=== PATIENT | male | born 1945 | race Caucasian/White ===

== ENCOUNTER 2017-01-14 19:13 | Inpatient (IN) | payer MEDICARE, BC ==
[2017-01-14 19:00] VITALS: BP 155/95
[2017-01-14 20:06] LABS: BASOPHILS 0.1 % (0.0-2.0); EOSINOPHILS 0.7 % (0-7); HEMATOCRIT 42.1 % (42.0-54.0); HEMOGLOBIN 13.7 g/dL (13.5-17.5); IMMATURE GRANULOCYTES 0.3 % (0-5); MCH 32.2 pg (26.0-34.0); MCHC 32.5 g/dL (31.0-37.0); MCV 98.8 fL (80.0-100.0); MEAN PLATELET VOLUME 9.9 fL (7.4-10.4); MONOCYTES 8.5 % (2-11); NEUTROPHILS 79.4 % (40-80); PLATELET COUNT 232 10x3/uL (130-400); RBC 4.26 10x6/uL (4.20-6.10); RDW 14.1 % (11.5-14.5); WBC 9.2 10x3/uL (4.8-10.8)
[2017-01-14 20:46] LABS: ALBUMIN 3.9 g/dL (3.4-5.0); ALKALINE PHOSPHATASE 120 U/L (46-116); ALT (SGPT) 29 U/L (10-68); CALC OSMOLALITY 283 mosm/kg (275-300); CALCIUM 8.9 mg/dL (8.5-10.1); CARBON DIOXIDE 28.5 mmol/L (21.0-32.0); CHLORIDE - SERUM 103 mmol/L (98-107); CREATININE - SERUM 1.1 mg/dL (0.6-1.3); GLUCOSE 125 mg/dL (74-106); POTASSIUM - SERUM 3.5 mmol/L (3.5-5.1); PROTEIN - SERUM 7.2 g/dL (6.4-8.2); SODIUM 141 mmol/L (136-145); UREA NITROGEN 17 mg/dL (7-18); eGFR NON AFRICAN AMERICAN 70 mL/min (90-120)
[2017-01-14 21:05] LABS: AMYLASE - SERUM 82 U/L (25-115); CREATINE KINASE 268 UL (21-232); LIPASE 186 U/L (73-393); PRO BNP 45 pg/mL (0-125)
[2017-01-14 21:06] LABS: CKMB 1.9 U/L (0.0-3.6); TROPONIN-I < 0.017 ng/mL (0.000-0.060)
[2017-01-15] MEDS ORDERED: AVAPRO300 MG PO ×2 (06:14→09:16)
[2017-01-15] MEDS ORDERED: LOZOL1.25 MG PO (06:15)
--- NOTE | 2017-01-15 06:51 | NUR ---
MEDITECH DOWN THROUGHOUT THE SHIFT, SEE NARRATIVE PAPER CHARTING.
[2017-01-15 08:50] VITALS: BP 119/71
[2017-01-15] MEDS ORDERED: ZYLOPRIM300 MG PO (09:14)
[2017-01-15] MEDS ORDERED: HYTRIN10 MG PO (09:14)
--- NOTE | 2017-01-15 09:35 | NUR ---
TELEMETRY SR. IV PATENT. CALL LIGHT IN REACH. WILL CONT. PLAN OF CARE.
[2017-01-15 11:03] VITALS: Wt 117.9 kg
[2017-01-15 11:54] VITALS: BP 109/70
[2017-01-15 16:09] VITALS: BP 172/76
[2017-01-15 19:00] VITALS: BP 169/87
[2017-01-16] VITALS: BP 134/81
--- NOTE | 2017-01-16 03:52 | NUR ---
PT RESTING IN BED WITH NO DISTRESS. SR PER TELEMETRY. SALINE LOCK TO LEFT A/C. CALL LIGHT IN REACH.
[2017-01-16 04:00] VITALS: BP 151/79
[2017-01-16 07:44] VITALS: BP 154/80
--- NOTE | 2017-01-16 08:23 | EC ---
PATIENT:MINDY LARKIN DATE OF SERVICE: 01/14/17 SEX: M MEDICAL RECORD: [id number] DATE OF : [birth year] LOCATION:D.M2 D.211 AGE OF PATIENT: 71 ADMISSION DATE: 01/14/17 REFERRING PHYSICIAN: INTERPRETING PHYSICIAN: LITA PADRON MD ECHOCARDIOGRAM REPORT ECHO CHARGES 4 ECHO COMPLETE CLINICAL DIAGNOSIS: A-FIB ECHOCARDIOGRAPHIC MEASUREMENTS (adult normal given) AC root (d.<3.7cm) 3.6 LV Septum d (<1.2 cm> 1.8 Valve Excursion 2.4 LV Septum (systole) 2.9 Left Atria (s.<4.0cm> 4.6 LVPW d(<1.2cm) 1.5 RV (d.<2.3cm) 3.0 LVPW (sytole) 2.3 LV diastole(<5.6CM) 6.7 MV E-F(>70mm/sec) LV systole 4.2 LVOT Diameter 2.5 MV exc.(>10mm) Est.ejection fraction (50-75%) Pericardial Effusion N DOPPLER: LVIT A 73.0 E 103 LA RVSP 33.0 LVOT 139 AOP1/2T Asc. Ao 196 RVOT 71.0 RA PA 113 AV Gradient Peak 15.4 AV Mean 8.2 AV Area 3.3 MV Gradient Peak 4.3 MV Mean 1.9 MV Area COMMENTS: Cleaner Greaser: Lyn ALONZOOE Machinist Wood:Jace Stanley TAPE# PACS DATE OF SERVICE: 01/15/2017 Adequate 2D echo, color flow and spectral Doppler, and M-mode. LVH is present. LV internal dimension is normal. Wall motion is normal. EF is greater than 55%. Aortic valve is tricuspid. No stenosis by Doppler interrogation. The left atrium is on dilated at 4.6 cm. Mitral valve shows no prolapse. Mild MR. Right-sided chamber is grossly normal. Trace TR. TRANSINT:[id number] Voice Confirmation ID: [id number] DOCUMENT ID: [id number] ECHOCARDIOGRAM REPORT [id number] MINDY LARKIN LITA PADRON MD at 0823 CC: [id number] DICTATION DATE: 01/15/17 1327 ANALYTICS CONSULTANT: 01/15/17 1646 ADM IN [facility] [address] [id number]
[2017-01-16] MEDS ORDERED: AVAPRO150 MG PO (10:42)
[2017-01-16] MEDS ORDERED: TOPROL XL50 MG PO (10:42)
[2017-01-16] MEDS ORDERED: FLUTICASONE PRO16 GM NASAL (10:45)
[2017-01-16 11:25] VITALS: BP 144/75
--- NOTE | 2017-01-16 11:51 | NUR ---
Patient Name: MINDY LARKIN Admission Status: ER Accout number: [id number] Admission Date: 01-14-2017 : 1945 Admission Diagnosis: Attending: FAYE Current LOS: 2 Anticipated DC Date: 01-16-2017 Planned Disposition: Home Primary Insurance: MEDICARE A & B Discharge Planning Comments: * Is the patient Alert and Oriented? Yes 0 * How many steps to enter\exit or inside your home? 1-O / 17-I 0 * PCP DR. AGUILAR 0 * Pharmacy [facility] IN [place] 0 * Preadmission Environment Home with Family 0 * ADLs Independent 0 * Equipment Other 0 * Other Equipment BLOOD PRESSURE MONITOR NO MEDICAL EQUIPMENT PROVIDER PREFERENCE 0 * List name and contact numbers for known caregivers / representatives who currently or will assist patient after discharge: BECK LARKIN, SPOUSE, 0 * Community resources currently utilized None 0 * Please name any agencies selected above. NONE 0 * Additional services required to return to the preadmission environment? No 0 * Can the patient safely return to the preadmission environment? Yes 0 * Has this patient been hospitalized within the prior 30 days at any hospital? No 0 CM MET WITH PT IN ROOM TO DISCUSS DISCHARGE PLANNING AND NEEDS. PT REPORTS LIVING AT HOME INDEPENDENTLY WITH SPOUSE. PT HAS BLOOD PRESSURE MONITOR WITH NO MEDICAL EQUIPMENT PROVIDER PREFERENCE. PT HAS NO OUTSIDE SERVICES ASSISTING IN THE HOME. CM DISCUSSED AVAILABILITY OF HOME HEALTH, REHAB SERVICES AND MEDICAL EQUIPMENT. PT DENIES DISCHARGE NEEDS, REPORTS HIS SPOUSE IS HERE TO PICK HIM UP FOR DISCHARGE HOME. IMPORTANT MESSAGE FROM MEDICARE PROVIDED AND EXPLAINED. 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 Wireless Sales Associate: Malik Burdick
--- NOTE | 2017-01-16 12:30 | NUR ---
REVIEWED DISCHARGE INSTRUCTIONS WITH PT AND BOTH STATE UNDERSTANDING COPY GIVEN. DCD SALINE LOCK WITH CATHETER TIP INTACT SITE FREE OF REDNESS OR EDEMA PT DISCHARGED HOME LEFT UNIT IN STABLE CONDITION WITH ALL PERSONAL BELONGINGS
== END 2017-01-16 12:30 | disposition home or self-care (01) | DRG 310 ==
LOC: D.ER 19:13 → D.M2 20:57
PROVIDERS: Family Medicine; ADMIT Family Medicine
DX: I48.91 Unspecified atrial fibrillation (principal); M10.9 Gout, unspecified; I10 Essential (primary) hypertension; N40.0 Benign prostatic hyperplasia without lower urinary tract symptoms; E55.9 Vitamin D deficiency, unspecified; N52.9 Male erectile dysfunction, unspecified; L20.9 Atopic dermatitis, unspecified; M19.90 Unspecified osteoarthritis, unspecified site; E66.9 Obesity, unspecified; J45.909 Unspecified asthma, uncomplicated

== ENCOUNTER → 2017-01-23 08:11 | Outpatient (CLI) | payer MEDICARE, BC ==
[~2017-01-23 08:11] MED LIST: AVAPRO150 MG PO; AVAPRO300 MG PO; FLUTICASONE PRO16 GM NASAL; HYTRIN10 MG PO; LOZOL1.25 MG PO; TOPROL XL50 MG PO; ZYLOPRIM300 MG PO
[2017-01-23 08:32] LABS: BASOPHILS 0.1 % (0.0-2.0); HEMATOCRIT 43.5 % (42.0-54.0); IMMATURE GRANULOCYTES 0.3 % (0-5); LYMPHOCYTES 17.8 % (15-50); MCHC 32.2 g/dL (31.0-37.0); MCV 99.5 fL (80.0-100.0); MEAN PLATELET VOLUME 9.8 fL (7.4-10.4); MONOCYTES 10.8 % (2-11); PLATELET COUNT 222 10x3/uL (130-400); RBC 4.37 10x6/uL (4.20-6.10)
[2017-01-23 09:05] LABS: ALBUMIN 3.4 g/dL (3.4-5.0); ALKALINE PHOSPHATASE 106 U/L (46-116); ALT (SGPT) 31 U/L (10-68); BILIRUBIN - TOTAL 1.12 mg/dL (0.2-1.3); CALC OSMOLALITY 289 mosm/kg (275-300); CALCIUM 8.7 mg/dL (8.5-10.1); CARBON DIOXIDE 30.1 mmol/L (21.0-32.0); CHLORIDE - SERUM 106 mmol/L (98-107); CHOL - HDL RATIO 4.3 ratio (2.3-4.9); CHOLESTEROL, TOTAL 138 mg/dL (0-200); GLUCOSE 111 mg/dL (74-106); HDL CHOLESTEROL 32 mg/dL (32-96); LDL CHOLESTEROL 94 mg/dL (0-100); LDL-HDL RATIO 2.9 ratio (1.5-3.5); POTASSIUM - SERUM 3.9 mmol/L (3.5-5.1); PROTEIN - SERUM 7.2 g/dL (6.4-8.2); SCREENING PSA (YEARLY) 3.29 ng/mL (0.00-4.00); SODIUM 144 mmol/L (136-145); TRIGLYCERIDE 62 mg/dL (30-200); UREA NITROGEN 18 mg/dL (7-18); URIC ACID 5.7 mg/dL (2.6-7.2); eGFR NON AFRICAN AMERICAN 78 mL/min (90-120)
== END | disposition home or self-care (01) ==
LOC: D.LAB 08:11
PROVIDERS: Family Medicine
DX: Z00.00 Encounter for general adult medical examination without abnormal findings (principal); Z12.5 Encounter for screening for malignant neoplasm of prostate; E55.9 Vitamin D deficiency, unspecified; M10.9 Gout, unspecified; E78.5 Hyperlipidemia, unspecified

== ENCOUNTER → 2018-04-28 11:33 | Outpatient (CLI) | payer MEDICARE, BC ==
[2018-04-28 12:05] LABS: BASOPHILS 0.2 % (0-2); EOSINOPHILS 2.7 % (0-7); HEMATOCRIT 41.1 % (42.0-54.0); HEMOGLOBIN 13.7 g/dL (13.5-17.5); IMMATURE GRANULOCYTES 0.2 % (0-5); MCH 32.7 pg (26.0-34.0); MCHC 33.3 g/dL (31.0-37.0); MCV 98.1 fL (80.0-100.0); MEAN PLATELET VOLUME 10.2 fL (7.4-10.4); MONOCYTES 8.8 % (2-11); NEUTROPHILS 68.1 % (40-80); PLATELET COUNT 196 10x3/uL (130-400); RBC 4.19 10x6/uL (4.20-6.10); RDW 14.2 % (11.5-14.5); WBC 6.4 10x3/uL (4.8-10.8)
[2018-04-28 12:28] LABS: ALBUMIN 3.7 g/dL (3.4-5.0); ALKALINE PHOSPHATASE 82 U/L (46-116); ALT (SGPT) 26 U/L (10-68); BILIRUBIN - TOTAL 1.02 mg/dL (0.2-1.3); CALC OSMOLALITY 285 mosm/kg (275-300); CALCIUM 8.5 mg/dL (8.5-10.1); CHLORIDE - SERUM 104 mmol/L (98-107); CHOL - HDL RATIO 4.7 ratio (2.3-4.9); CHOLESTEROL, TOTAL 166 mg/dL (0-200); CREATININE - SERUM 0.9 mg/dL (0.6-1.3); GLUCOSE 101 mg/dL (74-106); HDL CHOLESTEROL 35 mg/dL (32-96); LDL CHOLESTEROL 115 mg/dL (0-100); LDL-HDL RATIO 3.3 ratio (1.5-3.5); POTASSIUM - SERUM 3.5 mmol/L (3.5-5.1); PROTEIN - SERUM 7.2 g/dL (6.4-8.2); SODIUM 143 mmol/L (136-145); THYROID STIMULATING HORMONE 3.71 uIU/mL (0.36-3.74); TRIGLYCERIDE 83 mg/dL (30-200); UREA NITROGEN 16 mg/dL (7-18); eGFR NON AFRICAN AMERICAN 88 mL/min (90-120)
== END | disposition home or self-care (01) ==
LOC: D.LAB 11:33
PROVIDERS: Family Medicine
DX: Z00.00 Encounter for general adult medical examination without abnormal findings (principal); N40.0 Benign prostatic hyperplasia without lower urinary tract symptoms; E78.5 Hyperlipidemia, unspecified; E55.9 Vitamin D deficiency, unspecified

== ENCOUNTER → 2018-09-23 08:52 | Outpatient (CLI) | payer MEDICARE, BC ==
[2018-09-23 10:18] LABS: URIC ACID 4.9 mg/dL (2.6-7.2)
== END | disposition home or self-care (01) ==
LOC: D.LAB 08:52
PROVIDERS: Family Medicine
DX: N40.0 Benign prostatic hyperplasia without lower urinary tract symptoms (principal); M10.9 Gout, unspecified; I10 Essential (primary) hypertension; M19.90 Unspecified osteoarthritis, unspecified site; Z12.5 Encounter for screening for malignant neoplasm of prostate

== ENCOUNTER → 2019-04-07 10:47 | Outpatient (CLI) | payer MEDICARE, BC | END | disposition home or self-care (01) | LOC: D.LAB 10:47 | PROVIDERS: ATTEND Family Medicine | DX: N40.0 Benign prostatic hyperplasia without lower urinary tract symptoms (principal) ==

== ENCOUNTER → 2019-10-20 09:31 | Outpatient (CLI) | payer MEDICARE, BC ==
[2019-10-20 10:07] LABS: BASOPHILS 0.2 % (0-2); EOSINOPHILS 2.3 % (0-7); HEMATOCRIT 41.2 % (42.0-54.0); HEMOGLOBIN 13.6 g/dL (13.5-17.5); IMMATURE GRANULOCYTES 0.2 % (0-5); LYMPHOCYTES 18.6 % (15-50); MCH 32.6 pg (26.0-34.0); MCV 98.8 fL (80.0-100.0); MEAN PLATELET VOLUME 9.5 fL (7.4-10.4); MONOCYTES 10.2 % (2-11); NEUTROPHILS 68.5 % (40-80); PLATELET COUNT 227 10x3/uL (130-400); RBC 4.17 10x6/uL (4.20-6.10)
[2019-10-20 10:15] LABS: ALBUMIN 3.7 g/dL (3.4-5.0); ALKALINE PHOSPHATASE 88 U/L (46-116); ALT (SGPT) 20 U/L (10-68); BILIRUBIN - TOTAL 1.26 mg/dL (0.2-1.3); CALC OSMOLALITY 270 mosm/kg (275-300); CALCIUM 8.7 mg/dL (8.5-10.1); CARBON DIOXIDE 30.7 mmol/L (21.0-32.0); CHLORIDE - SERUM 100 mmol/L (98-107); CHOL - HDL RATIO 5.1 ratio (2.3-4.9); CHOLESTEROL, TOTAL 167 mg/dL (0-200); GLUCOSE 102 mg/dL (74-106); HDL CHOLESTEROL 33 mg/dL (32-96); LDL CHOLESTEROL 117 mg/dL (0-100); LDL-HDL RATIO 3.5 ratio (1.5-3.5); POTASSIUM - SERUM 3.2 mmol/L (3.5-5.1); PROTEIN - SERUM 7.1 g/dL (6.4-8.2); SODIUM 134 mmol/L (136-145); THYROID STIMULATING HORMONE 4.28 uIU/mL (0.36-3.74); TRIGLYCERIDE 85 mg/dL (30-200); UREA NITROGEN 21 mg/dL (7-18); URIC ACID 5.4 mg/dL (2.6-7.2); eGFR NON AFRICAN AMERICAN 78 mL/min (90-120)
== END | disposition home or self-care (01) ==
LOC: D.LAB 09:31
PROVIDERS: ATTEND Family Medicine
DX: I10 Essential (primary) hypertension (principal); M19.90 Unspecified osteoarthritis, unspecified site; M79.10 Myalgia, unspecified site; N40.0 Benign prostatic hyperplasia without lower urinary tract symptoms; Z00.00 Encounter for general adult medical examination without abnormal findings

== ENCOUNTER 2020-12-12 16:15 | Inpatient (IN) | payer MEDICARE, BC ==
[~2020-12-12] VITALS: Ht 193 cm; Wt 127.7 kg
[~2020-12-12 16:15] MED LIST changes: +BAYER CHEWABLE81 MG PO
[2020-12-12 17:12] LABS: BASOPHILS 0.1 % (0-2); EOSINOPHILS 0.1 % (0-7); HEMOGLOBIN 11.9 g/dL (13.5-17.5); IMMATURE GRANULOCYTES 0.3 % (0-5); LYMPHOCYTE ABS# 0.66 10x3/uL (1.32-3.57); LYMPHOCYTES 7.4 % (15-50); MCH 32.5 pg (26.0-34.0); MCHC 33.1 g/dL (31.0-37.0); MCV 98.4 fL (80.0-100.0); MEAN PLATELET VOLUME 9.6 fL (7.4-10.4); MONOCYTES 1.8 % (2-11); NEUTROPHIL ABS# 7.99 10x3/uL (1.78-5.38); NEUTROPHILS 90.3 % (40-80); PLATELET COUNT 184 10x3/uL (130-400); RBC 3.66 10x6/uL (4.20-6.10); RDW 14.3 % (11.5-14.5); WBC 8.9 10x3/uL (4.8-10.8)
[2020-12-12 17:26] LABS: APTT 34.3 SECONDS (22.8-39.4); INR 1.24 (0.85-1.17); PROTIME 14.4 SECONDS (11.6-15.0)
[2020-12-12 17:32] LABS: CALC OSMOLALITY 267 mosm/kg (275-300); CALCIUM 8.3 mg/dL (8.5-10.1); CARBON DIOXIDE 30.5 mmol/L (21.0-32.0); CHLORIDE - SERUM 96 mmol/L (98-107); CREATININE - SERUM 1.2 mg/dL (0.6-1.3); GLUCOSE 140 mg/dL (74-106); POTASSIUM - SERUM 3.9 mmol/L (3.5-5.1); SODIUM 131 mmol/L (136-145); UREA NITROGEN 21 mg/dL (7-18); eGFR NON AFRICAN AMERICAN 63 mL/min (90-120)
[2020-12-12 17:42] LABS: INFLUENZA TYPE A NEGATIVE (NEGATIVE); INFLUENZA TYPE B NEGATIVE (NEGATIVE)
[2020-12-12 17:47] LABS: ALKALINE PHOSPHATASE 58 U/L (30-120); ALT (SGPT) 28 U/L (10-68); BILIRUBIN - TOTAL 1.16 mg/dL (0.2-1.3); CKMB 0.1 U/L (0.0-3.6); PRO BNP 517 pg/mL (0-125); PROTEIN - SERUM 6.8 g/dL (6.4-8.2); TROPONIN-I < 0.017 ng/mL (0.000-0.060)
[2020-12-12 17:48] LABS: CREATINE KINASE 1403 UL (21-232)
[2020-12-12 18:48] LABS: SARS-CoV-2 ANTIGEN POSITIVE- SARS-COV-2 (NEGATIVE)
[2020-12-12] MEDS ORDERED: AVAPRO300 MG PO (20:42)
[2020-12-12] MEDS ORDERED: LOPRESSOR25 MG PO (20:44)
[2020-12-12] MEDS ORDERED: POTASSIUM CHLO20 MEQ PO (20:45)
[2020-12-12 20:46] VITALS: BP 130/58; BMI 29.7
[2020-12-13] VITALS: BP 122/58
[2020-12-13 04:00] VITALS: BP 156/52
[2020-12-13 05:55] LABS: BASOPHILS 0 % (0-2); EOSINOPHILS 0.1 % (0-7); HEMATOCRIT 40.1 % (42.0-54.0); HEMOGLOBIN 13.1 g/dL (13.5-17.5); IMMATURE GRANULOCYTES 0.3 % (0-5); LYMPHOCYTE ABS# 0.35 10x3/uL (1.32-3.57); MCH 32.3 pg (26.0-34.0); MCHC 32.7 g/dL (31.0-37.0); MCV 98.8 fL (80.0-100.0); MEAN PLATELET VOLUME 9.4 fL (7.4-10.4); MONOCYTES 3.7 % (2-11); NEUTROPHIL ABS# 8.12 10x3/uL (1.78-5.38); NEUTROPHILS 91.9 % (40-80); PLATELET COUNT 181 10x3/uL (130-400); RBC 4.06 10x6/uL (4.20-6.10); RDW 14.2 % (11.5-14.5); WBC 8.8 10x3/uL (4.8-10.8)
[2020-12-13 06:10] LABS: ANION GAP 11.5 mmol/L (8-16); CALCIUM 8.9 mg/dL (8.5-10.1); CREATININE - SERUM 1.5 mg/dL (0.6-1.3); MAGNESIUM - SERUM 2.6 mg/dL (1.8-2.4); PHOSPHOROUS 3.6 mg/dL (2.5-4.9); POTASSIUM - SERUM 3.5 mmol/L (3.5-5.1)
--- NOTE | 2020-12-13 07:20 | NUR ---
LYING IN BED, AWAKE/ALERT/ORIENTED, T/R SELF AD BAILEE, CONT OF B/B WITH BRPs PER SELF AD BAILEE, DENIES PAIN/OTHER DISCOMFORT AT THIS TIME, CALL LIGHT/PHONE/WATER WITHIN REACH, NO S/S OF ACUTE DISTRESS OBSERVED.
[2020-12-13 08:00] VITALS: BP 146/42
--- NOTE | 2020-12-13 10:11 | NUR ---
CALLED RT DUE TO O2 SAT UB 80s IB 9HF, SPOKE WITH WARREN
--- NOTE | 2020-12-13 11:10 | NUR ---
CALLED DR. HAN ABOUT REMDESEVIR WITH BUN AND CREATNINE ELEVATED AND GFR DECREASED, HE INSTRUCTED TO GIVE ORDERED.
[2020-12-13 15:00] VITALS: BP 130/60
--- NOTE | 2020-12-13 18:30 | NUR ---
IV LEAKING, DC'd
[2020-12-13 20:00] VITALS: BP 162/71
[2020-12-14] VITALS (15 sets, daily range): BP systolic 85–151; BP diastolic 46–93
--- NOTE | 2020-12-14 02:41 | NUR ---
I have reviewed this patient and I concur with the Shift Assessment completed by the Licensed Practical Nurse today this shift.
--- NOTE | 2020-12-14 04:38 | NUR ---
PATIENT O2 STATS WONT STAY ABOVE 83 SO NON REBREATHER APPLIED OVER HF NC 15, STATS ARE STILL NOT ABOVE 85 AND HOLDING SO BIPAP ORDERS ARE IN PLACE. RESPIRATORY ARE AWARE AND HAS BEEN NOTIFIED.
[2020-12-14 05:22] LABS: CREATININE - SERUM 1.4 mg/dL (0.6-1.3)
[2020-12-14 09:00] LABS: BASOPHILS 0.1 % (0-2); EOSINOPHILS 0 % (0-7); HEMOGLOBIN 12.7 g/dL (13.5-17.5); IMMATURE GRANULOCYTES 0.3 % (0-5); MCH 32.3 pg (26.0-34.0); MCHC 33.4 g/dL (31.0-37.0); MONOCYTES 2.2 % (2-11); NEUTROPHIL ABS# 15.67 10x3/uL (1.78-5.38); NEUTROPHILS 94.4 % (40-80); PLATELET COUNT 205 10x3/uL (130-400); RBC 3.93 10x6/uL (4.20-6.10); RDW 14.3 % (11.5-14.5)
[2020-12-14 09:14] LABS: ALBUMIN 2.6 g/dL (3.4-5.0); ANION GAP 13.2 mmol/L (8-16); BILIRUBIN - TOTAL 0.84 mg/dL (0.2-1.3); CALCIUM 8.2 mg/dL (8.5-10.1); CARBON DIOXIDE 25.3 mmol/L (21.0-32.0); CREATININE - SERUM 1.5 mg/dL (0.6-1.3); POTASSIUM - SERUM 3.5 mmol/L (3.5-5.1); PROTEIN - SERUM 6.6 g/dL (6.4-8.2)
[2020-12-14 09:28] LABS: MCV 96.7 fL (80.0-100.0); WBC 16.6 10x3/uL (4.8-10.8)
--- NOTE | 2020-12-14 10:10 | NUR ---
CALLED REPORT TO MIGUEL IN ICU. PT GOING TO ROOM 2316.
--- NOTE | 2020-12-14 20:00 | NUR ---
called to speak to nurse and was given update on patient.
--- NOTE | 2020-12-14 22:38 | NUR ---
called nurse and requested another update on patient.
[2020-12-15] VITALS (23 sets, daily range): BP systolic 88–133; BP diastolic 60–82; BMI 29.8
--- NOTE | 2020-12-15 00:30 | NUR ---
Patient received covalescent plasma and tolerated it well. Consent was signed before administration and placed on chart.
[2020-12-15 04:51] LABS: CREATININE - SERUM 1.3 mg/dL (0.6-1.3)
--- NOTE | 2020-12-15 06:39 | NUR ---
Patient had a few episodes of tachycardia through the night.
[2020-12-15 07:50] LABS: BASOPHILS 0.1 % (0-2); EOSINOPHILS 0 % (0-7); HEMATOCRIT 36.6 % (42.0-54.0); HEMOGLOBIN 12.2 g/dL (13.5-17.5); IMMATURE GRANULOCYTES 0.5 % (0-5); LYMPHOCYTE ABS# 0.29 10x3/uL (1.32-3.57); LYMPHOCYTES 1.9 % (15-50); MCH 32.3 pg (26.0-34.0); MCHC 33.3 g/dL (31.0-37.0); MCV 96.8 fL (80.0-100.0); MEAN PLATELET VOLUME 10.1 fL (7.4-10.4); MONOCYTES 5.3 % (2-11); NEUTROPHIL ABS# 14.28 10x3/uL (1.78-5.38); NEUTROPHILS 92.2 % (40-80); PLATELET COUNT 227 10x3/uL (130-400); RBC 3.78 10x6/uL (4.20-6.10); RDW 14.5 % (11.5-14.5); WBC 15.5 10x3/uL (4.8-10.8)
[2020-12-15 07:51] LABS: ALBUMIN 2.4 g/dL (3.4-5.0); ANION GAP 12.5 mmol/L (8-16); BILIRUBIN - TOTAL 0.62 mg/dL (0.2-1.3); CALCIUM 8.5 mg/dL (8.5-10.1); CARBON DIOXIDE 26.1 mmol/L (21.0-32.0); CREATININE - SERUM 1.3 mg/dL (0.6-1.3); POTASSIUM - SERUM 3.6 mmol/L (3.5-5.1); PROTEIN - SERUM 6.2 g/dL (6.4-8.2)
--- NOTE | 2020-12-15 13:29 | NUR ---
FOR LUNCH TODAY HAD PATIENT OFF BIPAP FOR AROUND 35 -40 MINUTES AND FEED PATIENT HIS LUNCH AND ATE WELL. HAVE TALKED TO AND PATIENT SON ABOUT POSSIBILITY OF BEING INTUBATED AND WHAT IS GOING ON. EKG DONE THIS AM SHOW AFIB AND AT THE MOMENTS IS CONTROLLED AND PATIENT ON METOPROLOL.
--- NOTE | 2020-12-15 18:00 | NUR ---
Patiet received second dose of ccp today and lasix given after. Patient has had his third time today off bipap and lasted about 25 minutes.
[2020-12-16] VITALS (71 sets, daily range): BP systolic 80–1105; BP diastolic 36–143
--- NOTE | 2020-12-16 02:20 | NUR ---
Patient was found standing beside the beside undressed. Patient was previously A&O X4 but is not completely confused and fighting to keep the bipap off.
--- NOTE | 2020-12-16 02:30 | NUR ---
Paged Dr. Serrano and received orders to intubate.
--- NOTE | 2020-12-16 02:45 | NUR ---
Called 4x and left a message to update her on patient's status and intubation.
--- NOTE | 2020-12-16 04:00 | NUR ---
Patient is now intubated and on sedation as well as levephed. It was quite difficult to sedate patient. Attempted to place NG tube without success.
[2020-12-16 05:08] LABS: CREATININE - SERUM 1.5 mg/dL (0.6-1.3)
[2020-12-16 06:22] LABS: BASOPHILS 0.1 % (0-2); EOSINOPHILS 0 % (0-7); HEMATOCRIT 35.1 % (42.0-54.0); HEMOGLOBIN 11.5 g/dL (13.5-17.5); IMMATURE GRANULOCYTES 0.3 % (0-5); LYMPHOCYTE ABS# 0.47 10x3/uL (1.32-3.57); LYMPHOCYTES 2.9 % (15-50); MCH 32.3 pg (26.0-34.0); MCHC 32.8 g/dL (31.0-37.0); MCV 98.6 fL (80.0-100.0); MEAN PLATELET VOLUME 10.6 fL (7.4-10.4); MONOCYTES 2.5 % (2-11); NEUTROPHIL ABS# 15.13 10x3/uL (1.78-5.38); NEUTROPHILS 94.2 % (40-80); PLATELET COUNT 254 10x3/uL (130-400); RBC 3.56 10x6/uL (4.20-6.10); RDW 14.5 % (11.5-14.5); WBC 16.1 10x3/uL (4.8-10.8)
--- NOTE | 2020-12-16 06:51 | NUR ---
Patient has converted back to sinus rythm.
--- NOTE | 2020-12-16 06:52 | NUR ---
Spoke to and updated her on patient's status.
[2020-12-16 07:39] LABS: ALBUMIN 2.2 g/dL (3.4-5.0); ANION GAP 18.1 mmol/L (8-16); BILIRUBIN - TOTAL 0.49 mg/dL (0.2-1.3); CALCIUM 8.6 mg/dL (8.5-10.1); CARBON DIOXIDE 21.9 mmol/L (21.0-32.0); CREATININE - SERUM 1.5 mg/dL (0.6-1.3); MAGNESIUM - SERUM 2.6 mg/dL (1.8-2.4); PHOSPHOROUS 5.7 mg/dL (2.5-4.9); PROTEIN - SERUM 5.6 g/dL (6.4-8.2)
[2020-12-16 10:01] LABS: BILIRUBIN NEGATIVE (NEGATIVE); KETONE NEGATIVE (NEGATIVE); NITRITE NEGATIVE (NEGATIVE); UROBILINOGEN NORMAL mg/dL (< 2)
[2020-12-16 10:02] LABS: BACTERIA FEW HPF (NONE SEEN); WHITE CELLS - URINE 2 HPF (0-1)
--- NOTE | 2020-12-16 13:08 | NUR ---
PATIENT TO TRANSFER TO 0 AND REPORT CALLED TO MED SURG AND REPORT GIVEN. iV TUBING CHANGED OUT BEFORE TRANSFER. PATIENT WILL NEED HELP EATING TO MAKE SURE HE EATS SLOW.
--- NOTE | 2020-12-16 18:27 | NUR ---
1500 CVP AROUND 10 DRPATEL NOTIFIED AND WILL CONTINUE TO DECREASE DRIP NEEDED DUE TO HEART RATE.
--- NOTE | 2020-12-16 18:46 | NUR ---
NEW TUBING PLACED ON NEW CENTRAL LINE PATIENT HEART RATE HAS VARIED THROUGHOUT THE SHIFT AND DR. HAN NOTIFIED NUMEROUS TIMES. REMDESIVIR HELD TODAY PER DR. HAN AND WILL GET IT ON FRIDAY. TALKED WITH SEVERAL TIMES AND QUESTIONS ANSWERED.
[2020-12-17] VITALS (53 sets, daily range): BP systolic 97–136; BP diastolic 51–77
--- NOTE | 2020-12-17 00:33 | NUR ---
Spoke to patient's and answered questions as well as addressed concerns.
--- NOTE | 2020-12-17 00:34 | NUR ---
Patient remains bradycardic.
[2020-12-17 07:05] LABS: BASOPHILS 0.1 % (0-2); EOSINOPHILS 0 % (0-7); HEMATOCRIT 34.9 % (42.0-54.0); HEMOGLOBIN 11.3 g/dL (13.5-17.5); IMMATURE GRANULOCYTES 0.3 % (0-5); LYMPHOCYTE ABS# 0.92 10x3/uL (1.32-3.57); LYMPHOCYTES 7.1 % (15-50); MCH 32.1 pg (26.0-34.0); MCHC 32.4 g/dL (31.0-37.0); MCV 99.1 fL (80.0-100.0); MEAN PLATELET VOLUME 10.3 fL (7.4-10.4); MONOCYTES 1.6 % (2-11); NEUTROPHIL ABS# 11.78 10x3/uL (1.78-5.38); NEUTROPHILS 90.9 % (40-80); PLATELET COUNT 261 10x3/uL (130-400); RBC 3.52 10x6/uL (4.20-6.10); RDW 14.9 % (11.5-14.5)
[2020-12-17 07:21] LABS: ALBUMIN 2.3 g/dL (3.4-5.0); BILIRUBIN - TOTAL 0.34 mg/dL (0.2-1.3); POTASSIUM - SERUM 3.8 mmol/L (3.5-5.1); PROTEIN - SERUM 5.7 g/dL (6.4-8.2)
[2020-12-17 07:22] LABS: ANION GAP 10.5 mmol/L (8-16); CARBON DIOXIDE 28.3 mmol/L (21.0-32.0); CREATININE - SERUM 2.1 mg/dL (0.6-1.3)
--- NOTE | 2020-12-17 08:57 | NUR ---
DECREASED FIO2 ON VENT FROM 100 TO 80% PER VERBAL ORDER DR HAN WILL DRAW ABGS IN 30 SPO2 100 ON DEPARTURE
--- NOTE | 2020-12-17 11:30 | NUR ---
ATTEMPTED TO PLACE TRANSFER PAD UNDER PT X2 ASSIST, PT STARTED HAVING A COUGHING FIT, DESATTED TO 78-85%, PROPOFOL TITRATED TO DECREASE RESPORTATORY EFFORT. RESPIRATORY THERAPY AT BEDSIDE. FiO2 INCREASED TO 100%. PT IMPROVED AFTER APPROX. 10 MINUTES. 100% O2 SAT. PT REMOVED FROM LEFT SIDE AND PLACED ON BACK TO COMFORT. ABLE TO SQUEEZE HAND AND COMMUNICATE THROUGH BLINKING WHEN ASKED QUESTIONS. ORAL CARE PERFORMED. PT SEEMS CALM AT THIS POINT. BED RAILS UP X2. BED IN LOWEST POSITION.
--- NOTE | 2020-12-17 18:52 | NUR ---
I have reviewed this patient and I concur with the Shift Assessment completed by the Licensed Practical Nurse today this shift.
[2020-12-18] VITALS (22 sets, daily range): BP systolic 96–137; BP diastolic 50–63
[2020-12-18 03:48] LABS: BASOPHILS 0.2 % (0-2); EOSINOPHILS 0.1 % (0-7); HEMOGLOBIN 10.6 g/dL (13.5-17.5); IMMATURE GRANULOCYTES 1.1 % (0-5); LYMPHOCYTE ABS# 0.72 10x3/uL (1.32-3.57); LYMPHOCYTES 5.9 % (15-50); MCH 32.1 pg (26.0-34.0); MCHC 32.1 g/dL (31.0-37.0); MEAN PLATELET VOLUME 9.8 fL (7.4-10.4); MONOCYTES 3.3 % (2-11); NEUTROPHIL ABS# 10.96 10x3/uL (1.78-5.38); NEUTROPHILS 89.4 % (40-80); PLATELET COUNT 244 10x3/uL (130-400); RDW 14.9 % (11.5-14.5); WBC 12.3 10x3/uL (4.8-10.8)
[2020-12-18 03:56] LABS: ALBUMIN 1.9 g/dL (3.4-5.0); ANION GAP 7.1 mmol/L (8-16); BILIRUBIN - TOTAL 0.31 mg/dL (0.2-1.3); CALCIUM 7.8 mg/dL (8.5-10.1); CREATININE - SERUM 1.8 mg/dL (0.6-1.3); POTASSIUM - SERUM 4.1 mmol/L (3.5-5.1); PROTEIN - SERUM 5.3 g/dL (6.4-8.2)
--- NOTE | 2020-12-18 07:20 | NUR ---
EPORT RECIEVED. PLAN OF CARE ASSUMED. SEE FLOWSHEET FOR ASSESSMENT FINDINGS.
--- NOTE | 2020-12-18 12:35 | NUR ---
Nutrition follow-up: Discussed during IDT team rounds. Intubated, sedated with propofol @ 26 ml/hr Pulmocare infusing @ 40 ml/hr4 goal rate with pt tolerance Vecuronium to start today Wt: 248# Pt with good po intake before intubation RDN follow-up: 12/20/20
--- NOTE | 2020-12-18 14:15 | NUR ---
RIGHT ENE PLACED AT THIS TIME, PT TOLERATED WELL
--- NOTE | 2020-12-18 17:56 | NUR ---
SPOKE WITH PT'S . UPDATE RECIEVED. NO FURTHER QUESTIONS AT THIS ITME.
--- NOTE | 2020-12-18 19:00 | NUR ---
I have reviewed this patient and I concur with the Shift Assessment completed by the Licensed Practical Nurse today this shift.
--- NOTE | 2020-12-18 23:23 | NUR ---
bedside shift report recieved at 1850. pt intubated and sedated. R CVL with 1/2 NS @75, propofol @ 5mcg/kg/ml, fent @250mcg/hr, vecruronium reduced from 1mcg/kg/min to 0.8mcg/kg/min @2320 set RR 26, pt RR 26. R radial artline with good waveform and correlates with manual cuff. velazquez with pale yellow urine. OGT asculated in stomach, bowel sounds hypoactive, resdual 25ml, stopped tube feeding due to pt started on vecuronium today. spoke with pt jass @ 1999 and 2309, password verified and pt updated on pt status, denies unanswered questions or unmet needs. will cont to assess.
[2020-12-19] VITALS (24 sets, daily range): BP systolic 106–126; BP diastolic 42–73
[2020-12-19 04:52] LABS: BASOPHILS 0.2 % (0-2); EOSINOPHILS 0.1 % (0-7); HEMATOCRIT 33.3 % (42.0-54.0); HEMOGLOBIN 10.2 g/dL (13.5-17.5); IMMATURE GRANULOCYTES 2.8 % (0-5); LYMPHOCYTE ABS# 0.54 10x3/uL (1.32-3.57); LYMPHOCYTES 4.1 % (15-50); MCH 30.9 pg (26.0-34.0); MCHC 30.6 g/dL (31.0-37.0); MCV 100.9 fL (80.0-100.0); MEAN PLATELET VOLUME 10.3 fL (7.4-10.4); MONOCYTES 3.9 % (2-11); NEUTROPHIL ABS# 11.76 10x3/uL (1.78-5.38); NEUTROPHILS 88.9 % (40-80); PLATELET COUNT 238 10x3/uL (130-400); RDW 14.7 % (11.5-14.5); WBC 13.2 10x3/uL (4.8-10.8)
[2020-12-19 05:25] LABS: ALBUMIN 1.7 g/dL (3.4-5.0); ANION GAP 9.5 mmol/L (8-16); BILIRUBIN - TOTAL 0.26 mg/dL (0.2-1.3); C-REACTIVE PROTEIN 12.9 mg/dL (0.0-0.9); CALCIUM 7.5 mg/dL (8.5-10.1); CREATININE - SERUM 1.6 mg/dL (0.6-1.3); PHOSPHOROUS 5.3 mg/dL (2.5-4.9); POTASSIUM - SERUM 4.5 mmol/L (3.5-5.1); PROTEIN - SERUM 5.1 g/dL (6.4-8.2); VANCOMYCIN - RANDOM 9.2 ug/mL (10.0-20.0)
--- NOTE | 2020-12-19 10:50 | NUR ---
DISCUSSED W/ DR. MOCK THAT TF'S WERE TURNED OFF OVERNIGHT PT IS ON PARALYTIC. HE SAID HE WOULD TAKE CARE OF IT.
--- NOTE | 2020-12-19 12:56 | NUR ---
0/4 TWITCHES NOTED ON TOF. TURNED DOWN VEC TO 0.6
--- NOTE | 2020-12-19 14:00 | NUR ---
NOTED PT TO HAVE LOW SATS, STAYING AROUND 89. SPOKE W/ GETACHEW WITH RT WHO REPORTS DR. POLANCO WANTS SATS ABOVE 90 AND THAT SHE WOULD PERFORM A RECRUITMENT MEASURE.
--- NOTE | 2020-12-19 16:57 | NUR ---
NO REACTION WITH TOF
--- NOTE | 2020-12-19 16:58 | NUR ---
0/4 TWITCHES TO TOF. FURTHER TURNED DOWN VEC TO 0.4
--- NOTE | 2020-12-19 17:54 | NUR ---
UPDATE GIVEN TO .
--- NOTE | 2020-12-19 20:31 | NUR ---
bedside shift report recieved @5405. no distress noted. pt temp decreased to 96.8, room warmed and warm blankets placed on pt, will re-assess. pt de-sated in 80's upon repostioning, recovered to low 90's. will cont to assess.
[2020-12-20] VITALS (23 sets, daily range): BP systolic 119–139; BP diastolic 51–65
--- NOTE | 2020-12-20 00:59 | NUR ---
LE FOR 2329; NEW BATTERY PLACED IN PNS, TOF 4 OF 4, INCREASED VEC TO 0.5 MCG/KG/MIN. @0000 TOF RE-ASSESSED AND REMAINED 4 OF 4, INCREASED VEC TO 0.6MCG/KG/MIN. @0030 TOF RE-ASSESSED AND REMAINS 4 OF 4, VEC INCREASED TO 0.7MCG/KG/MIN. CURRENTLY RR HAS DECREASED FROM 28 TO SET RATE OF 26 AND TRAIN OF FOUR IS 3 OF 4, WILL CONT RATE AT 0.7MCG/KG/MIN AND RE-ASSESS RR AND TOF.
--- NOTE | 2020-12-20 01:56 | NUR ---
PT TOF ASSESSED 1 OF 4, DECREASED VEC TO 0.65MCG/KG/MIN.
--- NOTE | 2020-12-20 06:11 | NUR ---
PT GIVEN CHG BATH AND PARTIAL LINEN CHANGE, PT PULLED UP IN BED AND DESAT TO 75%, HOB RAISED AND SPO2 INCREASED TO 94%; CONCERNED PT TOO UNSTABLE TO ATTEMPT COMPLETE LINEN CHANGE. TOF ASSESSED, 3 OF 4, NO CHANGE TO VEC GTT RATE.
[2020-12-20 06:52] LABS: BASOPHILS 0.2 % (0-2); EOSINOPHILS 0 % (0-7); HEMATOCRIT 34.6 % (42.0-54.0); HEMOGLOBIN 10.8 g/dL (13.5-17.5); IMMATURE GRANULOCYTES 5.8 % (0-5); LYMPHOCYTE ABS# 0.73 10x3/uL (1.32-3.57); LYMPHOCYTES 4.9 % (15-50); MCH 31.7 pg (26.0-34.0); MCHC 31.2 g/dL (31.0-37.0); MCV 101.5 fL (80.0-100.0); MEAN PLATELET VOLUME 10.6 fL (7.4-10.4); MONOCYTES 1.1 % (2-11); PLATELET COUNT 266 10x3/uL (130-400); RBC 3.41 10x6/uL (4.20-6.10); RDW 14.7 % (11.5-14.5); WBC 14.9 10x3/uL (4.8-10.8)
[2020-12-20 07:23] LABS: ANION GAP 12.6 mmol/L (8-16); CALCIUM 8.1 mg/dL (8.5-10.1); CARBON DIOXIDE 25.5 mmol/L (21.0-32.0); CREATININE - SERUM 1.4 mg/dL (0.6-1.3); POTASSIUM - SERUM 5.1 mmol/L (3.5-5.1); VANCOMYCIN - RANDOM 13.8 ug/mL (10.0-20.0)
--- NOTE | 2020-12-20 12:39 | NUR ---
CVL DRSG CHANGED USING STERILE TECHNIQUE.
--- NOTE | 2020-12-20 12:44 | NUR ---
Nutrition follow-up: Intubated, sedated with propofol @ 27 ml/hr Vecuronium stopped Pulmocare restarted @ 20 ml/hr with increase to goal rate of 40 ml/hr per Dr. Juarez labs reviewed Wt: 245# RDN follow-up: 12/22/20
--- NOTE | 2020-12-20 17:32 | NUR ---
TF STARTED BACK PER PREVIOUS ORDER.
--- NOTE | 2020-12-20 20:41 | NUR ---
bedside shift report received from Mirtha Herman @[id number]. pt re-postioned and appears stable at this time, RR SYNCHRONOUS with vent @26 RR, pt deeply sedated, will decrease sedation and and re-assess zeeshan score and RR. pt called @2039 and was updated on pt condition, reports MD's updated her today and denies unanswered questions.
[2020-12-21] VITALS (24 sets, daily range): BP systolic 129–162; BP diastolic 49–68
--- NOTE | 2020-12-21 00:18 | NUR ---
pt assessed and re-postioned, tolerated HOB flat while pulled up in bed without de-sat. tube feed residual 0, increased tube feed rate to 25ml/hr, will re-assess at 0300. oral suctioning and care preformed, pt brow furrow with oral suction and tear from eye, mod amount clear/cream sputum suctioned. sedation increased for cough. SPO2 in 90's. will cont to assess.
--- NOTE | 2020-12-21 05:48 | NUR ---
LATE ENTRY FOR 0330, PT ASSESSED AND RE-POSTIONED, NO DISTRESS NOTED DURING REPOSITIONING. TF RESIDUAL 30ML, INCREASED TF RATE TO 30ML/HR. WILL CONT TO ASSESS.
[2020-12-21 05:49] LABS: BASOPHILS 0.2 % (0-2); EOSINOPHILS 0 % (0-7); HEMATOCRIT 34.2 % (42.0-54.0); HEMOGLOBIN 10.6 g/dL (13.5-17.5); IMMATURE GRANULOCYTES 5.7 % (0-5); LYMPHOCYTE ABS# 0.63 10x3/uL (1.32-3.57); LYMPHOCYTES 4.2 % (15-50); MCH 31.5 pg (26.0-34.0); MCV 101.8 fL (80.0-100.0); MEAN PLATELET VOLUME 10.5 fL (7.4-10.4); MONOCYTES 2.4 % (2-11); NEUTROPHIL ABS# 13.09 10x3/uL (1.78-5.38); NEUTROPHILS 87.5 % (40-80); PLATELET COUNT 283 10x3/uL (130-400); RBC 3.36 10x6/uL (4.20-6.10); RDW 15.1 % (11.5-14.5)
[2020-12-21 06:00] LABS: ANION GAP 13.8 mmol/L (8-16); CALCIUM 8.1 mg/dL (8.5-10.1); CARBON DIOXIDE 23.4 mmol/L (21.0-32.0); CREATININE - SERUM 1.6 mg/dL (0.6-1.3); POTASSIUM - SERUM 5.2 mmol/L (3.5-5.1); VANCOMYCIN - RANDOM 17.7 ug/mL (10.0-20.0)
--- NOTE | 2020-12-21 09:32 | NUR ---
DR. POLANCO HERE FOR ROUNDS. NEW ORDERS RECEIVED.
--- NOTE | 2020-12-21 09:43 | NUR ---
TF CHANGED TO NEPRO PER ORDER.
--- NOTE | 2020-12-21 10:35 | NUR ---
SPOKE W/ ALEKSANDR KENNEDY APRN, ABOUT HTN ON CARDENE AND WANTING TO WEAN OFF USING PO MEDS SINCE HE PASSED SWALLOW EVAL. ORDERS RECEIVED.
--- NOTE | 2020-12-21 12:05 | NUR ---
CONTINUES TO NOT RESPOND TO CENTRAL NOR PERIPHERAL PAIN. RR ON VENT SYNCED. TURNED DOWN SEDATION FURTHER.
--- NOTE | 2020-12-21 13:39 | NUR ---
DR. LAUREN CARDENAS. NOTED HIS ELEVATED BP I TRY TO DECREASE HIS SEDATION. ORDERS RECEIVED.
--- NOTE | 2020-12-21 19:00 | NUR ---
RECEIVED BEDSIDE REPORT. ROUNDING COMPLETE. PATIENT RESTING COMFORTABLY. PATIENT INTUBATED. NO S/S OF DISTRESS. WILL CPOC.
[2020-12-22] VITALS (23 sets, daily range): BP systolic 116–194; BP diastolic 41–88
[2020-12-22 04:16] LABS: HEMATOCRIT 35.8 % (42.0-54.0); HEMOGLOBIN 11.3 g/dL (13.5-17.5); LYMPHOCYTE ABS# 0.99 10x3/uL (1.32-3.57); MCH 31.7 pg (26.0-34.0); MCHC 31.6 g/dL (31.0-37.0); MCV 100.6 fL (80.0-100.0); MEAN PLATELET VOLUME 10.4 fL (7.4-10.4); NEUTROPHIL ABS# 13.84 10x3/uL (1.78-5.38); PLATELET COUNT 282 10x3/uL (130-400); RBC 3.56 10x6/uL (4.20-6.10); RDW 14.6 % (11.5-14.5); WBC 16.4 10x3/uL (4.8-10.8)
[2020-12-22 04:37] LABS: ANION GAP 12.1 mmol/L (8-16); CALCIUM 8.7 mg/dL (8.5-10.1); CARBON DIOXIDE 23.7 mmol/L (21.0-32.0); CREATININE - SERUM 1.7 mg/dL (0.6-1.3); MAGNESIUM - SERUM 3.3 mg/dL (1.8-2.4); PHOSPHOROUS 4.2 mg/dL (2.5-4.9); POTASSIUM - SERUM 4.8 mmol/L (3.5-5.1); VANCOMYCIN - RANDOM 20.6 ug/mL (10.0-20.0)
[2020-12-22 04:55] LABS: LYMPHOCYTES 8 % (15-50); MONOCYTES 2 % (2-11); NEUTROPHILS 82 % (40-80); PLATELET ESTIMATE NORMAL
--- NOTE | 2020-12-22 08:04 | NUR ---
RESP RATE 30BPM, BP 180/82. DIPROVAN INCREASED EM49VDU/KG/MIN.
--- NOTE | 2020-12-22 12:43 | NUR ---
Nutrition reassessment: Pt intubated, sedated with propofol @ 30.4 ml/hr Labs reviewed; BUN/Cr: 88/1.7 trending up, GFR: 72 trending down No BM since admit per chart Ht: 6'4" Wt: 267# IBW: 202# +/-10% Estimated nutritional needs based on AdjBW of 99.2 [id number] kcal (25-30 AdjBW) 80-99 gm protein (0.8-1.0 gm/kg AdjBW) 7760-2943 ml fluid Nutrition diagnosis: Inadequate oral intake R/T intubation AEB pt continues to not meet est nutritional needs. Goals: - Pt will meet at least 75% of estimated kcal, protein needs on TF - Stable dry wt +/-5# - Meet at least 75% of estimated fluid needs Interventions: Nepro infusing @ goal rate of 40 ml/hr + propofol @ 30.2 ml/hr providin kcal (85-103% estimated kcal needs) 77 gms protein (77-96% estimated protein needs) Will continue current TF regimen of Nepro at 40 ml/hr. If propofol decreased or discontinued, will need to increase TF rate to meet nutritional needs. RDN follow-up: 12/25/20
[2020-12-23] VITALS (22 sets, daily range): BP systolic 123–155; BP diastolic 45–95; Ht 193 cm; Wt 127.7 kg
[2020-12-23 04:26] LABS: BASOPHILS 0.2 % (0-2); EOSINOPHILS 0 % (0-7); HEMATOCRIT 33.3 % (42.0-54.0); HEMOGLOBIN 10.4 g/dL (13.5-17.5); IMMATURE GRANULOCYTES 4.7 % (0-5); LYMPHOCYTE ABS# 1.23 10x3/uL (1.32-3.57); LYMPHOCYTES 6.2 % (15-50); MCH 32.1 pg (26.0-34.0); MCHC 31.2 g/dL (31.0-37.0); MCV 102.8 fL (80.0-100.0); MEAN PLATELET VOLUME 9.7 fL (7.4-10.4); NEUTROPHIL ABS# 17.39 10x3/uL (1.78-5.38); NEUTROPHILS 87.9 % (40-80); PLATELET COUNT 263 10x3/uL (130-400); RBC 3.24 10x6/uL (4.20-6.10); RDW 14.9 % (11.5-14.5); WBC 19.8 10x3/uL (4.8-10.8)
[2020-12-23 04:46] LABS: ANION GAP 10.8 mmol/L (8-16); CALCIUM 8.6 mg/dL (8.5-10.1); CARBON DIOXIDE 23.6 mmol/L (21.0-32.0); MAGNESIUM - SERUM 3.4 mg/dL (1.8-2.4); POTASSIUM - SERUM 5.4 mmol/L (3.5-5.1); VANCOMYCIN - RANDOM 21.9 ug/mL (10.0-20.0)
[2020-12-23 04:52] LABS: PHOSPHOROUS 6.2 mg/dL (2.5-4.9)
--- NOTE | 2020-12-23 05:35 | NUR ---
PATIENT DID WELL THROUGHOUT SHIFT, NO S/S DISTRESS. PATIENT CALLED TWICE AND WAS UPDATED ON CONDITION. NO ISSUES TO REPORT. Inna JARVIS RN
--- NOTE | 2020-12-23 19:00 | NUR ---
RECEIVED BEDSIDE REPORT. ROUNDING COMPLETE. PATIENT RESTING COMFORTABLY IN BED. PATIENT REMAINS ON MECHANICAL VENTILATION. NO S/S OF DISTRESS. WILL CPOC.
[2020-12-24] VITALS (24 sets, daily range): BP systolic 118–190; BP diastolic 58–77
[2020-12-24 04:55] LABS: HEMATOCRIT 35.6 % (42.0-54.0); HEMOGLOBIN 11.3 g/dL (13.5-17.5); LYMPHOCYTE ABS# 1.16 10x3/uL (1.32-3.57); MCH 32.1 pg (26.0-34.0); MCHC 31.7 g/dL (31.0-37.0); MCV 101.1 fL (80.0-100.0); MEAN PLATELET VOLUME 10.2 fL (7.4-10.4); NEUTROPHIL ABS# 18.36 10x3/uL (1.78-5.38); PLATELET COUNT 268 10x3/uL (130-400); RBC 3.52 10x6/uL (4.20-6.10); RDW 14.7 % (11.5-14.5); WBC 20.3 10x3/uL (4.8-10.8)
[2020-12-24 05:06] LABS: LYMPHOCYTES 7 % (15-50); MONOCYTES 1 % (2-11); NEUTROPHILS 88 % (40-80); PLATELET ESTIMATE NORMAL
[2020-12-24 05:23] LABS: ALBUMIN 1.6 g/dL (3.4-5.0); ANION GAP 10.9 mmol/L (8-16); BILIRUBIN - TOTAL 0.33 mg/dL (0.2-1.3); CALCIUM 8.7 mg/dL (8.5-10.1); CARBON DIOXIDE 24.3 mmol/L (21.0-32.0); CREATININE - SERUM 2.1 mg/dL (0.6-1.3); POTASSIUM - SERUM 5.2 mmol/L (3.5-5.1); PROTEIN - SERUM 5.6 g/dL (6.4-8.2); VANCOMYCIN - RANDOM 16.3 ug/mL (10.0-20.0)
--- NOTE | 2020-12-24 06:00 | NUR ---
CRITICAL LAB: BUN 116. DR. ARENAS ON UNIT AND NOTIFIED.
--- NOTE | 2020-12-24 09:00 | NUR ---
TEMP 96.0. WARM BLANKETS APPLIED. RESIDULES 350. TF ON HOLD.
--- NOTE | 2020-12-24 10:52 | NUR ---
ET TUBE DOWN [address] POLANCO. NOW AT 26
--- NOTE | 2020-12-24 21:59 | NUR ---
UPDATED BECK AT THIS TIME. PT IS STABLE AT THIS TIME. WILL CONTINUE TO MONITOR.
[2020-12-25] VITALS (40 sets, daily range): BP systolic 101–179; BP diastolic 46–107
--- NOTE | 2020-12-25 01:00 | NUR ---
ORAL CARE COMPLETED AT THIS TIME.
[2020-12-25 05:10] LABS: BASOPHILS 0 % (0-2); EOSINOPHILS 0 % (0-7); HEMATOCRIT 32.3 % (42.0-54.0); HEMOGLOBIN 10.4 g/dL (13.5-17.5); IMMATURE GRANULOCYTES 2.3 % (0-5); LYMPHOCYTE ABS# 1.03 10x3/uL (1.32-3.57); LYMPHOCYTES 4.9 % (15-50); MCH 31.7 pg (26.0-34.0); MCHC 32.2 g/dL (31.0-37.0); MCV 98.5 fL (80.0-100.0); MEAN PLATELET VOLUME 10.3 fL (7.4-10.4); MONOCYTES 1.5 % (2-11); NEUTROPHIL ABS# 19.22 10x3/uL (1.78-5.38); NEUTROPHILS 91.3 % (40-80); PLATELET COUNT 248 10x3/uL (130-400); RBC 3.28 10x6/uL (4.20-6.10); RDW 14.6 % (11.5-14.5); WBC 21.1 10x3/uL (4.8-10.8)
[2020-12-25 05:13] LABS: ALBUMIN 1.4 g/dL (3.4-5.0); ANION GAP 13.4 mmol/L (8-16); BILIRUBIN - TOTAL 0.41 mg/dL (0.2-1.3); CALCIUM 8.2 mg/dL (8.5-10.1); CARBON DIOXIDE 22.4 mmol/L (21.0-32.0); CREATININE - SERUM 2.4 mg/dL (0.6-1.3); POTASSIUM - SERUM 4.8 mmol/L (3.5-5.1); PROTEIN - SERUM 4.9 g/dL (6.4-8.2); VANCOMYCIN - RANDOM 21.6 ug/mL (10.0-20.0)
--- NOTE | 2020-12-25 10:00 | NUR ---
ENEMA ADMINISTERED PER DR ARENAS.PT HAD LARGE LOOSE BM WITH CONT LEAKAGE. RECTAL TUBE PLACED. COMPLETE LINEN CHANGE.
--- NOTE | 2020-12-25 10:44 | NUR ---
Nutrition follow-up: Discussed during IDT team rounds Intubated, sedated with propofol @ 20.3 ml/hr Labs reviewed Nepro TF off at this time due to constipation Noted enema ordered Possible Tach/PEG soonWt: 269# RDN follow-up: 12/27/20
--- NOTE | 2020-12-25 11:00 | NUR ---
PT WENT TACHY FROM HR IN 60S TO HR IN 150S. EKG OBTAINED AND PT IS IN AFIB WITH RVR. CARDIO CONSULTED AND PT PLACED ON AMIO DRIP PER ORDER. FAMILY UPDATED.
--- NOTE | 2020-12-25 11:04 | NUR ---
IN AFIB RVR, TERESA KENNEDY APN NOTIFIED, NEW ORDERS RECIEVED,
[2020-12-26] VITALS (80 sets, daily range): BP systolic 73–209; BP diastolic 30–68
--- NOTE | 2020-12-26 05:00 | NUR ---
PT HAVING COMPLICATIONS WITH O2 RESPIRATORY CALLED NURSE AT BEDSIDE.
[2020-12-26 05:31] LABS: CREATININE - SERUM 2.8 mg/dL (0.6-1.3); VANCOMYCIN - RANDOM 24.2 ug/mL (10.0-20.0)
--- NOTE | 2020-12-26 06:05 | NUR ---
PT STILL EXPERIENCING AGONAL RESPIRATIONS. RT CALLED TO BEDSIDE, THIS NURSE AT BEDSIDE. PT SUCTIONED. RT INCREASED O2 TO 100% AT THIS TIME.
[2020-12-26 07:52] LABS: ALBUMIN 1.5 g/dL (3.4-5.0); BILIRUBIN - TOTAL 0.69 mg/dL (0.2-1.3); CALCIUM 7.7 mg/dL (8.5-10.1); CARBON DIOXIDE 19.8 mmol/L (21.0-32.0); CREATININE - SERUM 2.8 mg/dL (0.6-1.3); PROTEIN - SERUM 4.4 g/dL (6.4-8.2)
[2020-12-26 07:59] LABS: ANION GAP 18.1 mmol/L (8-16); POTASSIUM - SERUM 3.9 mmol/L (3.5-5.1)
[2020-12-27] VITALS (83 sets, daily range): BP systolic 90–160; BP diastolic 29–81
[2020-12-27 05:14] LABS: CREATININE - SERUM 3.9 mg/dL (0.6-1.3)
[2020-12-27 09:09] LABS: HEMATOCRIT 32.4 % (42.0-54.0); HEMOGLOBIN 10.3 g/dL (13.5-17.5); LYMPHOCYTE ABS# 0.53 10x3/uL (1.32-3.57); MCH 31.7 pg (26.0-34.0); MCHC 31.8 g/dL (31.0-37.0); MCV 99.7 fL (80.0-100.0); MEAN PLATELET VOLUME 10.7 fL (7.4-10.4); NEUTROPHIL ABS# 29.33 10x3/uL (1.78-5.38); PLATELET COUNT 218 10x3/uL (130-400); RBC 3.25 10x6/uL (4.20-6.10); RDW 15.5 % (11.5-14.5); WBC 30.7 10x3/uL (4.8-10.8)
[2020-12-27 09:13] LABS: ALBUMIN 1.4 g/dL (3.4-5.0); ANION GAP 22.3 mmol/L (8-16); BILIRUBIN - TOTAL 0.66 mg/dL (0.2-1.3); CALCIUM 7.7 mg/dL (8.5-10.1); CARBON DIOXIDE 16.4 mmol/L (21.0-32.0); CREATININE - SERUM 3.9 mg/dL (0.6-1.3); PHOSPHOROUS 8.4 mg/dL (2.5-4.9); PROTEIN - SERUM 4.7 g/dL (6.4-8.2)
[2020-12-27 09:14] LABS: POTASSIUM - SERUM 4.7 mmol/L (3.5-5.1)
[2020-12-27 09:15] LABS: MAGNESIUM - SERUM 3.6 mg/dL (1.8-2.4)
[2020-12-27 13:12] LABS: LYMPHOCYTES 9 % (15-50); MONOCYTES 6 % (2-11); NEUTROPHILS 84 % (40-80); PLATELET ESTIMATE NORMAL
--- NOTE | 2020-12-27 14:57 | NUR ---
Pt resting in bed and has been repositioned for comfort. Pt has HD cath placed, no acute distress noted. Pt will be getting dialysis soon, will continue to monitor.
--- NOTE | 2020-12-27 14:58 | NUR ---
Nutrition follow-up: Pt discussed during IDT team rounds Intubated, sedated; propofol off per Dr. Serrano today Pt rescheduled for Trach/PEG placement 12/28/[address] Serrano Trialysis cath to be placed for dialysis due to worsening renal failure Nepro restarted at 20 ml/hr today; pt will be NPO after midnight tonight Labs reviewed Wt: 269# RDN will follow-up: 12/28/20
[2020-12-28] VITALS (93 sets, daily range): BP systolic 76–143; BP diastolic 38–65
[2020-12-28 04:23] LABS: BASOPHILS 0 % (0-2); EOSINOPHILS 0.7 % (0-7); HEMATOCRIT 31.5 % (42.0-54.0); HEMOGLOBIN 10.1 g/dL (13.5-17.5); IMMATURE GRANULOCYTES 0.8 % (0-5); LYMPHOCYTE ABS# 0.65 10x3/uL (1.32-3.57); LYMPHOCYTES 2.4 % (15-50); MCH 31.7 pg (26.0-34.0); MCHC 32.1 g/dL (31.0-37.0); MCV 98.7 fL (80.0-100.0); MEAN PLATELET VOLUME 10.6 fL (7.4-10.4); MONOCYTES 1.6 % (2-11); NEUTROPHIL ABS# 25.96 10x3/uL (1.78-5.38); NEUTROPHILS 94.5 % (40-80); PLATELET COUNT 204 10x3/uL (130-400); RBC 3.19 10x6/uL (4.20-6.10); RDW 15.8 % (11.5-14.5); WBC 27.5 10x3/uL (4.8-10.8)
[2020-12-28 04:42] LABS: ALBUMIN 1.2 g/dL (3.4-5.0); ANION GAP 20.5 mmol/L (8-16); BILIRUBIN - TOTAL 0.51 mg/dL (0.2-1.3); CALCIUM 8.1 mg/dL (8.5-10.1); CARBON DIOXIDE 18.3 mmol/L (21.0-32.0); CREATININE - SERUM 4.3 mg/dL (0.6-1.3); POTASSIUM - SERUM 4.8 mmol/L (3.5-5.1); PROTEIN - SERUM 5.4 g/dL (6.4-8.2); VANCOMYCIN - RANDOM 19.3 ug/mL (10.0-20.0)
[2020-12-28 04:52] LABS: PHOSPHOROUS 9.1 mg/dL (2.5-4.9)
--- NOTE | 2020-12-28 12:09 | NUR ---
Nutrition follow-up: Discussed during IDT team rounds Intubated, sedated Nepro started @ 20 ml/hr today with no increase Trach/PEG possibly 12/28/[address] Serrano Wt: 278# +BM Residuals: 140 ml Recommendations: - When PEG tube ready to use after placement, start Nepro @ 25 ml/hr with increase to goal rate of 50 ml/hr. - Flush with 25 ml H2O q hour if physician agrees RDN follow-up: 01/01/21
[2020-12-28 12:11] LABS: HEPATITIS C ANTIBODY 0.1 S/CO RAT (0.0-0.9)
--- NOTE | 2020-12-28 12:30 | NUR ---
PT IN UNCONTROLLED AFIB WITH RVR. CARDIO CALLED AND ORDER GIVEN FOR CARDIZEM DRIP AT 10.
--- NOTE | 2020-12-28 14:10 | NUR ---
PT CONVERTED TO AFIB RVR TO A FLUTTER RATE 140S. CARDIO CALLED AND ORDER REC TO D/C CARDIZEM DRIP AND TO GIVE AMIO BOLUS AND THEN AMIO DRIP AT 0.5 MG/MIN.
[2020-12-29] VITALS (94 sets, daily range): BP systolic 97–196; BP diastolic 33–75
[2020-12-29 04:34] LABS: BASOPHILS 0.1 % (0-2); EOSINOPHILS 0.6 % (0-7); HEMATOCRIT 29.8 % (42.0-54.0); HEMOGLOBIN 9.4 g/dL (13.5-17.5); LYMPHOCYTE ABS# 0.28 10x3/uL (1.32-3.57); LYMPHOCYTES 1.4 % (15-50); MCH 31.5 pg (26.0-34.0); MCHC 31.5 g/dL (31.0-37.0); MEAN PLATELET VOLUME 10.4 fL (7.4-10.4); MONOCYTES 4.3 % (2-11); NEUTROPHILS 92.6 % (40-80); PLATELET COUNT 207 10x3/uL (130-400); RBC 2.98 10x6/uL (4.20-6.10); RDW 16.2 % (11.5-14.5)
[2020-12-29 04:41] LABS: WBC 19.9 10x3/uL (4.8-10.8)
[2020-12-29 04:53] LABS: ANION GAP 23.7 mmol/L (8-16); BILIRUBIN - TOTAL 0.44 mg/dL (0.2-1.3); CALCIUM 7.3 mg/dL (8.5-10.1); CARBON DIOXIDE 17.3 mmol/L (21.0-32.0); PROTEIN - SERUM 5.1 g/dL (6.4-8.2)
[2020-12-29 05:26] LABS: CREATININE - SERUM 5.4 mg/dL (0.6-1.3)
--- NOTE | 2020-12-29 06:31 | NUR ---
DR ARENAS AT BEDSIDE, WILL ORDER ANOTHER VASOPRESSER DUE TO LEVO BEING OVER 20 MCG/MIN, ORDERED TO NOT TREAT SERUM GLUCOSE, WILL MONITOR GLUCOSE THROUGHOUT THE DAY, SAID SHE WILL SPEAK WITH THE REGARDING CODE STATUS ONCE ABG RESULTS ARE DONE. DR INFORMED BY THIS RN THAT ALL SEDATION HAS BEEN OFF FOR AT LEAST 6 HOURS AND THE PATIENT HAS NOT IMPROVED NEUROLOGICALLY.
--- NOTE | 2020-12-29 17:24 | NUR ---
AT BEDSIDE, REQUESTING LOCK OF HAIR, REINA DIAS OBTAINED LOCK OF HAIR AND GAVE TO THE
[2020-12-30] VITALS (53 sets, daily range): BP systolic 96–169; BP diastolic 43–77
--- NOTE | 2020-12-30 09:30 | NUR ---
ETT SECURE TO VENT DIMINSHED LUNG SOUNDS BILATERALLY. NO RESPONSE TO STERNAL RUB. NO VERONICA WHEN ORAL CARE DONE. LEFT TRIALYSIS INFUSING WITH NS AT KVO AND CORDARONE AT 0.5 MCG/MIN. LEVOPHED WEANED OFF FOR SBP GREATER THAN 90, MAP GREATER THAN 65. 15ML CLOUDY APOLLO URINE IN CARVER BAG. REPOSITIONED WITH BED. HEEL PROTECTORS ON BILATERALLY. ALL EXTREMITITES SWOLLEN. NG CLAMPED. CHECKED FOR PLACEMENT WITH AIR BOLUS AUDIBLE IN ABD. ABD LARGE DISTENDED. MONITOR ATRIAL FLUTTER VARIABLE RATE. roman right wrist secure good wave form. dr. elizabeth and lala here update given.
--- NOTE | 2020-12-30 10:52 | NUR ---
COMPLETE BED BATH GIVEN. GROIN AND SCROTUM EXTREMEMLY EXCORATION OF SKIN, SKIN PEELING. MOSITURE BARRIER APPLIED. SLING MADE WITH PILLOW CASE. BLEEDING FROM CARVER CATH SITE AFTER CLEANING. SMALL AMOUNT. RASH NOTED ON BACK. MEDIPLEX NOTED ON COCCYX DRY AND INTACT. NOT REMOVED. HEELS ELEVATED ON PILLOW HEEL PROTECTORS IN PLACE. SCD REAPPLIED. NO RESPONSE FROM PATIENT DURING BATH OR TURNING.
--- NOTE | 2020-12-30 13:09 | NUR ---
pink sputum from mouth, oral care large amount of secretions orally. still unresponsive. repositioned with bed
--- NOTE | 2020-12-30 14:22 | NUR ---
son is here talking with dr. elizabeth on phone. questions answered
--- NOTE | 2020-12-30 18:45 | NUR ---
FAMILY HERE, SON AND DAUGHTER. . STATES PATIENT IS A DNR. SHE DOES NOT WANT TO REMOVE ETT, BREATHING TUBE AT THIS TIME, STATES WITH HIS KIDNEYS FAILING, SHE IS HOPING HE JUST GOES TO SLEEP. EMOTIONAL SUPPORT PROVIDED. DISCUSS LIFE SUPPORT PROLONGING LIFE. STATES SHE FEELS HIS BODY WILL TELL HER WHEN ITS TIME, HOPING HE JUST HAS A HEART ATTACK.FAMILY AT BEDSIDE WITH PATIENT
[2020-12-31] VITALS (24 sets, daily range): BP systolic 72–1168; BP diastolic 37–70
[2020-12-31 09:47] LABS: BASOPHILS 0.1 % (0-2); EOSINOPHILS 0.9 % (0-7); HEMATOCRIT 28.3 % (42.0-54.0); IMMATURE GRANULOCYTES 0.6 % (0-5); LYMPHOCYTE ABS# 0.64 10x3/uL (1.32-3.57); LYMPHOCYTES 5.1 % (15-50); MCH 31.1 pg (26.0-34.0); MCHC 31.8 g/dL (31.0-37.0); MCV 97.9 fL (80.0-100.0); MEAN PLATELET VOLUME 10.5 fL (7.4-10.4); MONOCYTES 1.4 % (2-11); NEUTROPHIL ABS# 11.61 10x3/uL (1.78-5.38); NEUTROPHILS 91.9 % (40-80); RBC 2.89 10x6/uL (4.20-6.10); WBC 12.6 10x3/uL (4.8-10.8)
[2020-12-31 09:50] LABS: PLATELET COUNT 162 10x3/uL (130-400)
[2020-12-31 10:11] LABS: ALBUMIN 1.2 g/dL (3.4-5.0); ANION GAP 24.3 mmol/L (8-16); BILIRUBIN - TOTAL 0.38 mg/dL (0.2-1.3); CALCIUM 7.7 mg/dL (8.5-10.1); CARBON DIOXIDE 18.5 mmol/L (21.0-32.0); CREATININE - SERUM 9.1 mg/dL (0.6-1.3)
[2020-12-31 10:13] LABS: POTASSIUM - SERUM 6.8 mmol/L (3.5-5.1)
--- NOTE | 2020-12-31 20:00 | NUR ---
REC'D REPORT FROM OFF-GOING NURSE AND ASSUMED CARE. INTITIAL ASSESSMENT COMPLETED AND RECORDED PER FLOW SHEET. NON-RESPONSIVE, ON VENT WITH NO SEDATION. ON CORDARONE @ 0.5 MG/MIN (16.7 ML/HR) TO NURSE PORT. HEMODIALYSIS PORTS BOTH SALINE LOCKED. O2 SATS LOW 90S WITH FiO2 @ 85%, WILL MONITOR. SCANT AMT OF APOLLO URINE IN CARVER BAG. CALLED TO SAY THAT SHE, HER SON AND DAUGHTER IN [place] WOULD BE UP IN ABOUT A HALF HOUR TO SEE. EXPLAINED THAT IT WAS STILL ONLY 2 PEOPLE AND SHE VOICED THAT SHE UNDERSTOOD.
--- NOTE | 2020-12-31 21:30 | NUR ---
AND SON IN ROOM AT THIS TIME, QUESTIONS ANSWERED. CONT TO BE SLIGHTLY TACHY PER MONITOR WITH RATE JUST OVER 100 AND 02 SAT MAINTAINING AROUND 90% WITH O2 NOW UP TO 100%. WILL CONT TO MONITOR. HAVE BEEN SUCTIONING COPIOUS BLOODY SECRETIONS FROM MOUTH, ETT AND SUBGLOTTAL TUBE. MOUTH CARE DONE A SHORT TIME AGO.
== END 2021-01-01 00:15 | DRG 207 ==
LOC: D.ER 16:15 → D.M2 19:42 → D.ICU 19:42
PROVIDERS: Family Medicine; Internal Medicine Nephrology; Internal Medicine Pulmonary Disease; ADMIT Family Medicine; ATTEND Family Medicine
PROC: XW033E5 Introduction of Remdesivir Anti-infective into Peripheral Vein, Percutaneous Approach, New Technology Group 5 (ICD-10-PCS; 2020-12-12)
PROC: XW13325 Transfusion of Convalescent Plasma (Nonautologous) into Peripheral Vein, Percutaneous Approach, New Technology Group 5 (ICD-10-PCS; 2020-12-14)
PROC: 5A1955Z Respiratory Ventilation, Greater than 96 Consecutive Hours (ICD-10-PCS; principal; 2020-12-16)
PROC: 0BH17EZ Insertion of Endotracheal Airway into Trachea, Via Natural or Artificial Opening (ICD-10-PCS; 2020-12-16)
PROC: 05HM33Z Insertion of Infusion Device into Right Internal Jugular Vein, Percutaneous Approach (ICD-10-PCS; 2020-12-16)
PROC: 05HM33Z Insertion of Infusion Device into Right Internal Jugular Vein, Percutaneous Approach (ICD-10-PCS; 2020-12-27)
DX: U07.1 COVID-19 (principal); J12.82 Pneumonia due to coronavirus disease 2019; J96.01 Acute respiratory failure with hypoxia; N17.0 Acute kidney failure with tubular necrosis; I50.30 Unspecified diastolic (congestive) heart failure; I48.20 Chronic atrial fibrillation, unspecified; M19.91 Primary osteoarthritis, unspecified site; I10 Essential (primary) hypertension; J45.20 Mild intermittent asthma, uncomplicated; M1A.9XX0 Chronic gout, unspecified, without tophus (tophi); N40.1 Benign prostatic hyperplasia with lower urinary tract symptoms; R39.11 Hesitancy of micturition